=== PATIENT | female | born 1985 | race African-American/Black ===

== ENCOUNTER 2016-10-20 15:06 | Emergency (ER) | payer OTHER ==
[~2016-10-20] VITALS: Ht 165.1 cm; Wt 110.6 kg
[2016-10-20 15:11] VITALS: BP 161/77; PULSE 100; RESP 16; TEMP 98.5; O2SAT 100
[2016-10-20] MEDS ORDERED: CYCL1TAB29 PO (15:22)
[2016-10-20] MEDS ORDERED: SODIUM CHLORIDE 0.9% FLUSH 10 ML FLUSH IV FLUSH PRN (16:15)
[2016-10-20 16:20] VITALS: O2SAT 96
[2016-10-20 16:26] VITALS: BP 119/82; PULSE 98; RESP 18; O2SAT 100
[2016-10-20 16:29] LABS: AUTOMATED NEUTROPHIL # 5.5 TH/MM3 (1.8-7.7); BASOPHIL # 0.1 TH/MM3 (0-0.2); BASOPHIL % 0.8 % (0.0-2.0); EOSINOPHIL # 0.3 TH/MM3 (0-0.4); EOSINOPHIL % 2.8 % (0.0-4.0); HEMATOCRIT 33.8 % (35.0-46.0); HEMO FLAGS DIFF FINAL; LYMPH % 31.9 % (9.0-44.0); LYMPHOCYTE # 2.9 TH/MM3 (1.0-4.8); MEAN CELL VOLUME 87.5 FL (80.0-100.0); MEAN CORPUSCULAR HEMOGLOBIN 29.5 PG (27.0-34.0); MEAN CORPUSCULAR HGB CONC 33.7 % (32.0-36.0); MONO % 3.3 % (0.0-8.0); NEUT % 61.2 % (16.0-70.0); PLATELET COUNT 193 TH/MM3 (150-450); RED BLOOD COUNT 3.86 MIL/MM3 (4.00-5.30); RED CELL DISTRIBUTION WIDTH 12.5 % (11.6-17.2); WHITE BLOOD COUNT 9.1 TH/MM3 (4.0-11.0)
--- NOTE | 2016-10-20 16:31 | PD ---
HPI Chief Complaint: Internal Grinder Problem/Complaint Time Seen by Provider: 15:59 Travel History International Travel<30 days: No Contact w/Intl Traveler<30days: No Traveled to known affect area: No History of Present Illness HPI Patient is a 28-year-old female at approximately 5 weeks gestational age by last menstrual period presents emergency Department lower quadrant abdominal cramping and vaginal bleeding for the past 4 days. Patient states that every time she changed her pad blood run down her leg again. She denies weakness or fatigue or feeling like she's been a pass out. She is unsure what her blood type is. Denies any fever denies any nausea vomiting or diarrhea or change in bowel habits. States that she had a ultrasound at her primary care physician's office and they couldn't find a baby. PFSH Past Medical History Respiratory: Yes (ASTHMA) ?: LMP: AUGUST 18 Social History Alcohol Use: No Tobacco Use: No Substance Use: Yes (MARIJUANA) Allergies-Medications (Allergen,Severity, Reaction): Coded Allergies: Shellfish (Verified Allergy, Unknown, 10/20/16) Reported Meds & Prescriptions Reported Meds & Active Scripts Active Reported Flexeril (Cyclobenzaprine HCl) 10 Mg Tab 10 Mg PO TID Review of Systems Except as stated in HPI: all other systems reviewed are Neg Physical Exam Narrative GENERAL: Well-developed well-nourished no obvious distress SKIN: Focused skin assessment warm/dry. HEAD: Atraumatic. Normocephalic. EYES: Pupils equal and round. No scleral icterus. No injection or drainage. ENT: No nasal bleeding or discharge. Mucous membranes pink and moist. NECK: Trachea midline. No JVD. CARDIOVASCULAR: Regular rate and rhythm. No murmur appreciated. RESPIRATORY: No accessory muscle use. Clear to auscultation. Breath sounds equal bilaterally. GASTROINTESTINAL: Abdomen soft, non-tender, nondistended. Hepatic and splenic margins not palpable. GENITOURINARY: Patient examined with female nurse drum dyeing machine operator present at all times , [place] blood in the posterior fornix, there is perhaps a small amount of membranous tissue from the cervix. Cervix is closed. No cervical motion tenderness no bimanual tenderness, no vaginal tears no vaginal lesion. MUSCULOSKELETAL: No obvious deformities. No clubbing. No cyanosis. No edema. NEUROLOGICAL: Awake and alert. No obvious cranial nerve deficits. Motor grossly within normal limits. Normal speech. PSYCHIATRIC: Appropriate mood and affect; insight and judgment normal. Data Data Last Documented VS Vital Signs Date Time Temp Pulse Resp B/P Pulse Ox O2 Delivery O2 Flow Rate FiO2 10/20/16 20:45 78 18 121/76 99 10/20/16 19:20 98.6 Room Air Orders Urinalysis - C+S If Indicated (10/20/16 16:02) Ed Urine Pregnancytest Poc (10/20/16 16:02) Basic Metabolic Panel (Bmp) (10/20/16 16:14) Beta Hcg (Quant/Titer) (10/20/16 16:14) Complete Blood Count With Diff (10/20/16 16:14) Iv Access Insert/Monitor (10/20/16 16:14) Ecg Monitoring (10/20/16 16:14) Oximetry (10/20/16 16:14) Sodium Chloride 0.9% Flush (Ns Flush) (10/20/16 16:15) Abo/Rh Blood Type (10/20/16 16:14) Us Pelvis (Ques Pr/Ect)W Trans (10/20/16 ) Gc And Chlamydia Pcr (10/20/16 17:00) Urine Culture (10/20/16 17:05) Labs Laboratory Tests Test 10/20/16 10/20/16 16:18 17:05 White Blood Count 9.1 TH/MM3 Red Blood Count 3.86 MIL/MM3 Hemoglobin 11.4 GM/DL Hematocrit 33.8 % Mean Corpuscular Volume 87.5 FL Mean Corpuscular Hemoglobin 29.5 PG Mean Corpuscular Hemoglobin 33.7 % Concent Red Cell Distribution Width 12.5 % Platelet Count 193 TH/MM3 Mean Platelet Volume 9.6 FL Neutrophils (%) (Auto) 61.2 % Lymphocytes (%) (Auto) 31.9 % Monocytes (%) (Auto) 3.3 % Eosinophils (%) (Auto) 2.8 % Basophils (%) (Auto) 0.8 % Neutrophils # (Auto) 5.5 TH/MM3 Lymphocytes # (Auto) 2.9 TH/MM3 Monocytes # (Auto) 0.3 TH/MM3 Eosinophils # (Auto) 0.3 TH/MM3 Basophils # (Auto) 0.1 TH/MM3 CBC Comment DIFF FINAL Differential Comment Sodium Level 136 MEQ/L Potassium Level 4.1 MEQ/L Chloride Level 106 MEQ/L Carbon Dioxide Level 24.7 MEQ/L Anion Gap 5 MEQ/L Blood Urea Nitrogen 4 MG/DL Creatinine 0.77 MG/DL Estimat Glomerular Filtration 104 ML/MIN Rate Random Glucose 94 MG/DL Calcium Level 8.8 MG/DL Human Chorionic Gonadotropin, 180 MIU/ML Quant Blood Type A POSITIVE Blood Bank Comment Urine Collection Type VOIDED Urine Color RED Urine Turbidity CLOUDY Urine pH 6.0 Urine Specific [place] 1.010 Urine Protein 30 mg/dL Urine Glucose (UA) NEG mg/dL Urine Ketones NEG mg/dL Urine Occult Blood LARGE Urine Nitrite NEG Urine Bilirubin NEG Urine Leukocyte Esterase LARGE Urine RBC 15-19 /hpf Urine WBC 9-14 /hpf Urine WBC Clumps RARE Urine Squamous Epithelial >8 /hpf Cells Urine Bacteria RARE /hpf Microscopic Urinalysis Comment CULTURE INDICATED MDM Medical Decision Making Medical Screen Exam Complete: Yes Emergency Medical Condition: Yes Differential Diagnosis Miscarriage, anemia, Rh mismatch, vaginal bleeding and . Narrative Course Patient roomed in emergency primary, appears well and abdomen is benign. Her symptoms are highly consistent with an inevitable lower eating completed . The patient's total Quant hCG is 180. She is Rh+ and she has minimal anemia with hemoglobin 11.4. The patient's ultrasound read is taking some time to return to the patient would like to leave. She states she is feeling fine. She would asking what she can take for pain and recommended Tylenol. She seems fairly comfortable this time and declined any pain medicine in the emergency department. I have received her phone number and will call her with the results of her ultrasound. She was discharged into her own care. Last 24 hours Impressions Pelvis Ultrasound 10/20/16 0000 Signed Impressions: Service Date/Time: October 18:43 - CONCLUSION: Markedly heterogeneous echotexture to the thickened endometrium without a discernible gestational sac or pole. Endometrial echogenic areas measures up to 2.2 cm in dimension. There is also a mild amount of free fluid in the cul-de-sac. Yasir Mann MD Discussed with the patient the ultrasound findings and recommended that she have a repeat hCG in 48 hours. She verbalized understanding and agreement. Recommended taking her vitamins and discussed return to ED criteria. Diagnosis Primary Impression: Vaginal bleeding in Additional Instructions: Return to the emergency department in 48 hours for repeat blood test. Disposition: DISCHARGE HOME Condition: Stable Osman Altman MD Oct 20, 2016 16:31
[2016-10-20 16:42] LABS: BICARBONATE 24.7 MEQ/L (21.0-32.0)
[2016-10-20 17:12] LABS: BLOOD, URINE LARGE (NEG); GLUCOSE,URINE NEG (NEG); KETONE, URINE NEG (NEG); NITRITE,URINE NEG (NEG)
[2016-10-20 17:23] LABS: METHOD OF COLLECTION VOIDED; URINE COLOR RED (YELLW/STRAW)
[2016-10-20 17:24] LABS: RBC, URINE 15-19 /hpf (0-3)
[2016-10-20 17:25] LABS: BACTERIA, URINE RARE /hpf; COMMENT (UR) CULTURE INDICATED; CULTURE IF INDICATED CULTURE INDICATED
[2016-10-20 17:26] LABS: SQUAMOUS EPITHELIAL CELL URINE >8 /hpf (0-5)
[2016-10-20 17:45] LABS: POTASSIUM 4.1 MEQ/L (3.5-5.1)
[2016-10-20 18:07] VITALS: BP 114/65; PULSE 88; RESP 18; O2SAT 99
[2016-10-20 19:20] VITALS: BP 119/73; PULSE 91; RESP 18; TEMP 98.6; O2SAT 100
[2016-10-20 20:45] VITALS: BP 121/76
--- NOTE | 2016-10-20 21:05 | RADRPT ---
EXAM DATE/TIME: 10/20/2016 18:43 [facility] COMPARISON: No previous studies available for comparison. INDICATIONS : Heavy vaginal bleeding with clots. LAB(S): Beta-hC MEDICAL HISTORY : . Asthma. Substance use. SURGICAL HISTORY : None. ENCOUNTER: Initial ACUITY: 3 weeks PAIN SCORE: 0/10 LOCATION: Bilateral pelvis MEASUREMENTS: RIGHT OVARY: 2.3 x 2.0 x 2.0 cm UTERUS: 10.8 x 6.1 x 5.7 cm ENDOMETRIAL STRIPE: >20 mm LEFT OVARY: 2.3 x 1.4 x 2.1 cm FREE FLUID: Yes posterior cul de sac FINDINGS: There is marked thickening and heterogeneous echotexture in the endometrium. There is some vasculari ty seen about the periphery of the endometrium on power Doppler imaging. The heterogeneous area of e chotexture measures 1.8 x 2.2 x 2.1 cm. No gestational sac is seen. No endometrial fluid. Incident al note of several nabothian cysts in the cervix. Both ovaries are identified and have a homogeneous echotexture and normal size. Mild amount of free fluid in the cul-de-sac. CONCLUSION: Markedly heterogeneous echotexture to the thickened endometrium without a discernible gestational sac or pole. Endometrial echogenic areas measures up to 2.2 cm in dimension. There is also a mil d amount of free fluid in the cul-de-sac. Yasir Mann MD on October 20, 2016 at 20:58 Board Certified Radiologist. This report was verified electronically.
[2016-10-20 23:53] LABS: CHLAMYDIA PCR NOT DETECTED (NOT DETECT); NEISSERIA PCR NOT DETECTED (NOT DETECT)
== END 2016-10-20 20:45 | disposition home or self-care (01) ==
LOC: PHED 15:06
DX: O20.9 Hemorrhage in early pregnancy, unspecified (principal); R82.71 Bacteriuria; Z3A.01 Less than 8 weeks gestation of pregnancy
CPT/HCPCS: 76700; 76817; 80048; 81001; 84702; 84703; 85025; 86900; 86901; 87086; 87491; 87591

== ENCOUNTER 2017-07-27 15:27 | Emergency (ER) | payer OTHER ==
[~2017-07-27] VITALS: Ht 167.6 cm; Wt 118.0 kg
[~2017-07-27 15:27] MED LIST: CYCL10TA PO
[2017-07-27 15:37] VITALS: BP 133/60; PULSE 85; RESP 18; TEMP 98.4; O2SAT 100
--- NOTE | 2017-07-27 15:51 | PD ---
HPI Chief Complaint: Chest Pain Time Seen by Provider: 15:47 Travel History International Travel<30 days: No Contact w/Intl Traveler<30days: No Traveled to known affect area: No History of Present Illness HPI Patient comes in complaining of a sharp pain seems to start between the shoulder blades in the back and radiate towards the front of her chest. He has been ongoing for the past couple of weeks, but increasing in intensity over the past day or so. Despite the fact that her primary care physician started her on prednisone for this chest pain. Patient is not clear as to what was being exactly treated, however she does not have any current wheezing that she knows often she was not prescribed at inhaler either. The patient while she is here also stated that she has had this headache as well and ear fullness since she got back from a cruise approximately 2 weeks ago. She stated that she had runny nose, dry cough which resolved over the previous 2 weeks. But now she seems to also have this chest pain that is independent of this headache. Head pain is generalized though more in the frontal regions of her forehead and face , pressure and sensation, 4 5 out of 10, nonradiating. Patient denies any alleviating or aggravating factors. Patient denies any associated factors such as fever, rash, abdominal pain nausea vomiting diarrhea recent cough runny nose shortness of breath or sore throat Patient is allergic to shellfish Past medical history significant only for asthma PFSH Past Medical History Respiratory: Yes (ASTHMA) ?: Not LMP: 06/2017 Social History Alcohol Use: No Tobacco Use: No Substance Use: Yes (MARIJUANA) Allergies-Medications (Allergen,Severity, Reaction): Coded Allergies: shellfish derived (Unverified Allergy, Unknown, 11/01/16) Reported Meds & Prescriptions Reported Meds & Active Scripts Active Reported Flexeril (Cyclobenzaprine HCl) 10 Mg Tab 10 Mg PO TID Review of Systems General / Constitutional: No: Fever Eyes: No: Visual changes HENT: No: Headaches Cardiovascular: Positive: Chest Pain or Discomfort Respiratory: No: Shortness of Breath Gastrointestinal: No: Abdominal Pain Genitourinary: No: Dysuria Musculoskeletal: No: Pain Skin: No Rash Neurologic: No: Weakness Psychiatric: No: Depression Endocrine: No: Polydipsia Hematologic/Lymphatic: No: Easy Bruising Physical Exam Narrative GENERAL: SKIN: Warm and dry. HEAD: Atraumatic. Normocephalic. EYES: Pupils equal and round. No scleral icterus. No injection or drainage. ENT: No nasal bleeding or discharge. Mucous membranes pink and moist. Bilateral TM has effusions, but without any erythema dullness or loss of landmarks. NECK: Trachea midline. No JVD. CARDIOVASCULAR: Regular rate and rhythm. RESPIRATORY: No accessory muscle use. Clear to auscultation. Breath sounds equal bilaterally. GASTROINTESTINAL: Abdomen soft, non-tender, nondistended. MUSCULOSKELETAL: Extremities without clubbing, cyanosis, or edema. No obvious deformities. NEUROLOGICAL: Awake and alert. No obvious cranial nerve deficits. Motor grossly within normal limits. Five out of 5 muscle strength in the arms and legs. Normal speech. PSYCHIATRIC: Appropriate mood and affect; insight and judgment normal. Data Data Last Documented VS Vital Signs Date Time Temp Pulse Resp B/P (MAP) Pulse Ox O2 Delivery O2 Flow Rate FiO2 07/27/17 16:06 137/86 (103) 07/27/17 15:55 100 Room Air 07/27/17 15:48 85 18 07/27/17 15:37 98.4 Orders Orders Electrocardiogram (07/27/17 15:51) B-Type Natriuretic Peptide (07/27/17 15:51) Ckmb (Isoenzyme) Profile (07/27/17 15:51) Complete Blood Count With Diff (07/27/17 15:51) Comprehensive Metabolic Panel (07/27/17 15:51) Prothrombin Time / Inr (Pt) (07/27/17 15:51) Act Partial Throm Time (Ptt) (07/27/17 15:51) Troponin I (07/27/17 15:51) Lipase (07/27/17 15:51) Chest, Single Ap (07/27/17 15:51) Ecg Monitoring (07/27/17 15:51) Bilateral Bp Monitoring (07/27/17 15:51) Iv Access Insert/Monitor (07/27/17 15:51) Oximetry (07/27/17 15:51) Oxygen Administration (07/27/17 15:51) Sodium Chloride 0.9% Flush (Ns Flush) (07/27/17 16:00) Ct Thorax/ Chest Wo Iv Contras (07/27/17 15:51) Labs Laboratory Tests Test 07/27/17 16:02 White Blood Count 12.1 TH/MM3 Red Blood Count 4.45 MIL/MM3 Hemoglobin 12.4 GM/DL Hematocrit 37.9 % Mean Corpuscular Volume 85.1 FL Mean Corpuscular Hemoglobin 27.8 PG Mean Corpuscular Hemoglobin Concent 32.7 % Red Cell Distribution Width 12.9 % Platelet Count 217 TH/MM3 Mean Platelet Volume 9.4 FL Neutrophils (%) (Auto) 71.0 % Lymphocytes (%) (Auto) 24.0 % Monocytes (%) (Auto) 4.3 % Eosinophils (%) (Auto) 0.1 % Basophils (%) (Auto) 0.6 % Neutrophils # (Auto) 8.6 TH/MM3 Lymphocytes # (Auto) 2.9 TH/MM3 Monocytes # (Auto) 0.5 TH/MM3 Eosinophils # (Auto) 0.0 TH/MM3 Basophils # (Auto) 0.1 TH/MM3 CBC Comment DIFF FINAL Differential Comment Prothrombin Time 10.2 SEC Prothromb Time International Ratio 1.0 RATIO Activated Partial Thromboplast Time 24.1 SEC Blood Urea Nitrogen 8 MG/DL Creatinine 0.87 MG/DL Random Glucose 98 MG/DL Total Protein 7.6 GM/DL Albumin 3.1 GM/DL Calcium Level 8.8 MG/DL Alkaline Phosphatase 70 U/L Aspartate Amino Transf (AST/SGOT) 41 U/L Alanine Aminotransferase (ALT/SGPT) 95 U/L Total Bilirubin 0.3 MG/DL Sodium Level 142 MEQ/L Potassium Level 3.2 MEQ/L Chloride Level 108 MEQ/L Carbon Dioxide Level 28.8 MEQ/L Anion Gap 5 MEQ/L Estimat Glomerular Filtration Rate 90 ML/MIN Total Creatine Kinase 79 U/L Troponin I LESS THAN 0.02 NG/ML B-Type Natriuretic Peptide 3 PG/ML Lipase 87 U/L MDM Medical Decision Making Medical Screen Exam Complete: Yes Emergency Medical Condition: Yes Medical Record Reviewed: Yes Interpretation(s) EKG shows normal sinus rhythm with sinus arrhythmia, 81 bpm, no specific ST-T wave changes, no evidence of any ST elevation CO pattern. Differential Diagnosis Rule out for pericardial effusion versus aortic dissection versus pleurisy versus pneumonia versus pneumothorax Narrative Course CBC shows reactive leukocytosis of 12,000 without any left shift, no evidence of anemia, normal platelet count, coagulation profile within normal limits Electrolytes show minimal low potassium of 3.2 this is not significant enough to provide IV repletion Normal kidney and pancreatic functions. Negative first set of cardiac enzymes Beta natruretic peptide negative at 3 Chest x-ray read by radiologist as no acute disease Chest CT read by radiologist as negative for any pericardial effusion, pneumonia , pneumothorax, and no secondary findings to suggest pulmonary edema nor pulmonary embolus Diagnosis Primary Impression: Atypical chest pain Additional Impression: Sinus headache Patient Instructions: General Instructions, Noncardiac Chest Pain (DC), Sinusitis (ED) Additional Instructions: Please follow-up with your primary care for further evaluation. Today CAT scan of your chest did NOT show any evidence of pneumonia, collapsed lung, fluid around your heart: Pericardial effusion,blood clot, aortic aneurysm, or heart attack. Scripts Tramadol (Ultram) 50 Mg Tab 50 MG PO Q6H Y for PAIN, #12 TAB 0 Refills Prov: Garrett Guillen MD 07/27/17 Ciprofloxacin (Cipro) 500 Mg Tab 500 MG PO BID for Infection for 7 Days, #14 TAB 0 Refills Prov: Garrett Guillen MD 07/27/17 Disposition: 01 DISCHARGE HOME Condition: Stable Garrett Guillen MD July 27, 2017 15:51
[2017-07-27 15:55] VITALS: O2SAT 100
[2017-07-27] MEDS ORDERED: SODIUM CHLORIDE 0.9% FLUSH 10 ML FLUSH IVF PRN (16:00)
[2017-07-27 16:06] VITALS: BP 137/86
[2017-07-27 16:10] LABS: AUTOMATED NEUTROPHIL # 8.6 TH/MM3 (1.8-7.7); BASOPHIL # 0.1 TH/MM3 (0-0.2); BASOPHIL % 0.6 % (0.0-2.0); EOSINOPHIL % 0.1 % (0.0-4.0); HEMATOCRIT 37.9 % (35.0-46.0); HEMOGLOBIN 12.4 GM/DL (11.6-15.3); LYMPHOCYTE # 2.9 TH/MM3 (1.0-4.8); MEAN CELL VOLUME 85.1 FL (80.0-100.0); MEAN CORPUSCULAR HEMOGLOBIN 27.8 PG (27.0-34.0); MEAN CORPUSCULAR HGB CONC 32.7 % (32.0-36.0); MEAN PLATELET VOLUME 9.4 FL (7.0-11.0); MONO % 4.3 % (0.0-8.0); MONOCYTE # 0.5 TH/MM3 (0-0.9); PLATELET COUNT 217 TH/MM3 (150-450); RED BLOOD COUNT 4.45 MIL/MM3 (4.00-5.30); RED CELL DISTRIBUTION WIDTH 12.9 % (11.6-17.2); WHITE BLOOD COUNT 12.1 TH/MM3 (4.0-11.0)
[2017-07-27 16:25] LABS: CHLORIDE 108 MEQ/L (98-107); PROTHROMBIN TIME - PATIENT 10.2 SEC (9.8-11.6); SODIUM (NA) 142 MEQ/L (136-145)
[2017-07-27 16:29] LABS: ALBUMIN 3.1 GM/DL (3.4-5.0); BICARBONATE 28.8 MEQ/L (21.0-32.0); BLOOD UREA NITROGEN 8 MG/DL (7-18); CALCIUM 8.8 MG/DL (8.5-10.1); GLUCOSE,RANDOM 98 MG/DL (74-106)
[2017-07-27 16:32] LABS: ALT (GPT) 95 U/L (10-53); AST (GOT) 41 U/L (15-37); CREATININE 0.87 MG/DL (0.50-1.00); GLOMERULAR FILTRATION RATE 90 ML/MIN (>89)
[2017-07-27 16:34] LABS: TOTAL BILIRUBIN ADULT 0.3 MG/DL (0.2-1.0); TOTAL PROTEIN 7.6 GM/DL (6.4-8.2)
[2017-07-27 16:35] LABS: ALKALINE PHOSPHATASE 70 U/L (45-117)
[2017-07-27 16:37] LABS: TROPONIN I LESS THAN 0.02 NG/ML (0.02-0.05)
--- NOTE | 2017-07-27 17:08 | RADRPT ---
EXAM DATE/TIME: 07/27/2017 16:45 [facility] COMPARISON: No previous studies available for comparison. INDICATIONS : Upper chest pain. RADIATION DOSE: 28.86 CTDIvol (mGy) MEDICAL HISTORY : Substance use SURGICAL HISTORY : None. ENCOUNTER: Initial ACUITY: 2 weeks PAIN SCALE: 8/10 LOCATION: Bilateral chest TECHNIQUE: Volumetric scanning of the chest was performed. Using automated exposure control and adjustment of t he mA and/or kV according to patient size, radiation dose was kept as low as reasonably achievable to obtain optimal diagnostic quality images. DICOM format image data is available electronically for r eview and comparison. Follow-up recommendations for detected pulmonary nodules are based at a minimum on nodule size and pa tient risk factors according to Fleischner Society Guidelines. FINDINGS: LUNGS: There is no consolidation or pneumothorax. No concerning pulmonary nodule is visualized. PLEURAE: There is no pleural thickening or pleural effusion. MEDIASTINUM: The heart and great vessels demonstrate no acute abnormality. There is no mediastinal or hilar lymph adenopathy. AXILLAE: Within normal limits. No lymphadenopathy. MUSCULOSKELETAL: Within normal limits for patient age. MISCELLANEOUS: The visualized upper abdominal organs demonstrate no acute abnormality. CONCLUSION: 1. No acute finding on chest CT. Oseas Puente MD on July 27, 2017 at 17:05 Board Certified Radiologist. This report was verified electronically.
--- NOTE | 2017-07-27 17:12 | RADRPT ---
EXAM DATE/TIME: 07/27/2017 16:03 [facility] COMPARISON: No previous studies available for comparison. INDICATIONS : Chest pain. MEDICAL HISTORY : Asthma. SURGICAL HISTORY : None. ENCOUNTER: Initial ACUITY: 1 day PAIN SCORE: 7/10 LOCATION: chest Center FINDINGS: A single view of the chest demonstrates the lungs to be symmetrically aerated without evidence of mas s, infiltrate or effusion. The cardiomediastinal contours are unremarkable. Osseous structures are intact. CONCLUSION: No acute disease. Oseas Puente MD on July 27, 2017 at 17:09 Board Certified Radiologist. This report was verified electronically.
[2017-07-27] MEDS ORDERED: CIPR-9 PO (17:25)
[2017-07-27] MEDS ORDERED: TRAM50 PO (17:25)
[2017-07-27 17:50] VITALS: BP 124/66
--- NOTE | 2017-07-29 08:40 | EKG ---
Date Performed: 07/27/2017 Time Performed: 16:16:07 PTAGE: 32 years EKG: Sinus rhythm WITH SINUS ARRHYTHMIA NONSPECIFIC T-WAVE ABNORMALITY BORDERLINE ECG NO PREVIOUS TRACING DOCTOR: Luis Jackson Interpretating Date/Time 07/29/2017 08:38:31
== END 2017-07-27 18:00 | disposition home or self-care (01) ==
LOC: PHED 15:27
DX: R07.89 Other chest pain (principal); R51 Headache; D72.829 Elevated white blood cell count, unspecified; R09.89 Other specified symptoms and signs involving the circulatory and respiratory systems; R05 Cough; J45.909 Unspecified asthma, uncomplicated; F12.90 Cannabis use, unspecified, uncomplicated; I49.8 Other specified cardiac arrhythmias; R94.31 Abnormal electrocardiogram [ECG] [EKG]
CPT/HCPCS: 71045; 71250; 80053; 82550; 83690; 83880; 84484; 85025; 85610; 85730; 93005; 99285